=== PATIENT | female | born 1975 | race Caucasian/White ===

== ENCOUNTER 2016-09-30 22:20 | Emergency (ER) | payer MEDICAID ==
--- NOTE | 2016-09-30 22:26 | EDM.PDOC ---
ED HPI GENERAL MEDICAL PROBLEM - General Stated Complaint: SUICIDE Time Seen by Provider: 09/30/16 22:24 Source of Information: Reports: Patient - History of Present Illness INITIAL COMMENTS - FREE TEXT/NARRATIVE: HISTORY AND PHYSICAL: History of present illness: [] Patient had called the suicide hotline tonight with a plan for suicide by ingestion of her medication, she has a history of depression previous suicide attempt at 18yo by cutting wrists, denies inpatient admission for psychiatric or suicidal ideations in the past No fever nausea vomiting chills sweats no chest pain shortness breath headache dizziness palpitation no bowel or urine symptoms She admits to drinking alcohol tonight but denies illicit drug use History of bipolar disorder and depression Pill Count is accurate, Hx of asthma or medications than she should. Indicating noncompliance Review of systems: As per history of present illness and below otherwise all systems reviewed and negative. Past medical history: As per history of present illness and as reviewed below otherwise noncontributory. Surgical history: As per history of present illness and as reviewed below otherwise noncontributory. Social history: No reported history of drug or alcohol abuse. Family history: As per history of present illness and as reviewed below otherwise noncontributory. Physical exam: HEENT: Atraumatic, normocephalic, pupils reactive, negative for conjunctival pallor or scleral icterus, mucous membranes moist, throat clear, neck supple, nontender, trachea midline. Lungs: Clear to auscultation, breath sounds equal bilaterally, chest nontender. Heart: S1S2, regular, negative for clicks, rubs, or JVD. Abdomen: Soft, nondistended, nontender. Negative for masses or hepatosplenomegaly. Negative for costovertebral tenderness. Pelvis: Stable nontender. Genitourinary: Deferred. Rectal: Deferred. Extremities: Atraumatic, negative for cords or calf pain. Neurovascular unremarkable. Neuro: Awake, alert, oriented. Cranial nerves II through XII unremarkable. Cerebellum unremarkable. Motor and sensory unremarkable throughout. Exam nonfocal. Diagnostics: [] Lab as below EKG Chest one view Therapeutics: [] KCl 20 mEq by mouth Impression: [] Suicidal ideation with plan Definitive disposition and diagnosis as appropriate pending reevaluation and review of above. - Related Data Allergies Allergy/AdvReac Type Severity Reaction Status Date / Time Tetracyclines Allergy Airway Verified 09/30/16 22:36 Tightness Home Meds: Home Meds PARoxetine HCl [Paxil] 40 mg PO BEDTIME 09/30/16 [History] lamoTRIgine [Lamotrigine] 100 mg PO BEDTIME 09/30/16 [History] traZODone 50 mg PO BEDTIME 09/30/16 [History] ED ROS GENERAL - Review of Systems Review Of Systems: ROS reveals no pertinent complaints other than HPI. ED EXAM, GENERAL - Physical Exam Exam: See Below Course - Vital Signs Last Recorded V/S: Last Vital Signs Temp 36.8 C 09/30/16 22:20 Pulse 70 09/30/16 23:34 Resp 18 09/30/16 23:34 BP 113/91 H 09/30/16 23:34 Pulse Ox 96 09/30/16 23:34 - Orders/Labs/Meds Orders: Active Orders 24 hr Category Date Time Status EKG Documentation Completion [RC] STAT Care 09/30/16 22:22 Active Chest 1V Frontal [CR] Stat Exams 09/30/16 22:22 Taken Labs: Laboratory Tests 09/30/16 09/30/16 09/30/16 Range/Units 22:20 22:20 22:20 WBC (4.0-11.0) K/uL RBC (4.30-5.90) M/uL Hgb (12.0-16.0) g/dL Hct (36.0-46.0) % MCV (80.0-98.0) fL MCH (27.0-32.0) pg MCHC (31.0-37.0) g/dL RDW Std Deviation (28.0-62.0) fl RDW Coeff of Joanne (11.0-15.0) % Plt Count (150-400) K/uL MPV (7.40-12.00) fL Neut % (Auto) (48.0-80.0) % Lymph % (Auto) (16.0-40.0) % [place] % (Auto) (0.0-15.0) % Eos % (Auto) (0.0-7.0) % Baso % (Auto) (0.0-1.5) % Neut # (1.4-5.7) K/uL Lymph # (0.6-2.4) K/uL [place] # (0.0-0.8) K/uL Eos # (0.0-0.7) K/uL Baso # (0.0-0.1) K/uL Nucleated RBC % /100WBC Nucleated RBCs # K/uL Sodium (136-146) mmol/L Potassium (3.5-5.1) mmol/L Chloride (98-110) mmol/L Carbon Dioxide (21-31) mmol/L BUN (6.0-23.0) mg/dL Creatinine (0.6-1.5) mg/dL Est Cr Clr Drug Dosing mL/min Estimated GFR (MDRD) ml/min Glucose (60-110) mg/dL Calcium (8.8-10.8) mg/dL Total Bilirubin (0.1-1.5) mg/dL AST (5-40) IU/L ALT (8-54) IU/L Alkaline Phosphatase (40-150) Troponin I (0.0-0.29) NG/ML Total Protein (6.0-8.0) g/dL Albumin (3.5-5.0) g/dL Globulin (2.0-3.5) g/dL Albumin/Globulin Ratio (1.3-2.8) Amylase (10-90) U/L Lipase (7-80) U/L TSH 3rd Generation (0.47-5.0) uIU/mL Urine Color YELLOW Urine Appearance CLEAR Urine pH 5.5 (5.0-8.0) Ur Specific [place] <= 1.005 (1.001-1.035) Urine Protein NEGATIVE (NEGATIVE) mg/dL Urine Glucose (UA) NEGATIVE (NEGATIVE) mg/dL Urine Ketones NEGATIVE (NEGATIVE) mg/dL Urine Occult Blood TRACE-INTACT (NEGATIVE) Urine Nitrite NEGATIVE (NEGATIVE) Urine Bilirubin NEGATIVE (NEGATIVE) Urine Urobilinogen 0.2 (<2.0) EU/dL Ur Leukocyte Esterase NEGATIVE (NEGATIVE) Urine RBC 0-1 (0-2/HPF) Urine WBC 0-2 (0-5/HPF) Ur Epithelial Cells FEW (NONE-FEW) Urine Bacteria RARE (NEGATIVE) Urine HCG, Qual NEGATIVE (NEGATIVE) Salicylates (0-20) mg/dL Urine Opiates Screen NEGATIVE (NEGATIVE) Ur Oxycodone Screen NEGATIVE (NEGATIVE) Urine Methadone Screen NEGATIVE (NEGATIVE) Acetaminophen ug/mL Ur Barbiturates Screen NEGATIVE (NEGATIVE) Ur Phencyclidine Scrn NEGATIVE (NEGATIVE) Ur Amphetamine Screen NEGATIVE (NEGATIVE) U Methamphetamines Scrn NEGATIVE (NEGATIVE) U Benzodiazepines Scrn NEGATIVE (NEGATIVE) U Cocaine Metab Screen NEGATIVE (NEGATIVE) U Marijuana (THC) Screen NEGATIVE (NEGATIVE) Ethyl Alcohol mg/dL 09/30/16 09/30/16 09/30/16 Range/Units 22:30 22:30 22:30 WBC 8.84 (4.0-11.0) K/uL RBC 4.61 (4.30-5.90) M/uL Hgb 14.7 (12.0-16.0) g/dL Hct 43.5 (36.0-46.0) % MCV 94.4 (80.0-98.0) fL MCH 31.9 (27.0-32.0) pg MCHC 33.8 (31.0-37.0) g/dL RDW Std Deviation 45.3 (28.0-62.0) fl RDW Coeff of Joanne 13 (11.0-15.0) % Plt Count 211 (150-400) K/uL MPV 10.40 (7.40-12.00) fL Neut % (Auto) 53.4 (48.0-80.0) % Lymph % (Auto) 40.3 H (16.0-40.0) % [place] % (Auto) 4.2 (0.0-15.0) % Eos % (Auto) 1.6 (0.0-7.0) % Baso % (Auto) 0.5 (0.0-1.5) % Neut # 4.7 (1.4-5.7) K/uL Lymph # 3.6 H (0.6-2.4) K/uL [place] # 0.4 (0.0-0.8) K/uL Eos # 0.1 (0.0-0.7) K/uL Baso # 0.0 (0.0-0.1) K/uL Nucleated RBC % 0.0 /100WBC Nucleated RBCs # 0 K/uL Sodium 142 (136-146) mmol/L Potassium 3.2 L (3.5-5.1) mmol/L Chloride 109 (98-110) mmol/L Carbon Dioxide 23 (21-31) mmol/L BUN 8 (6.0-23.0) mg/dL Creatinine 0.8 (0.6-1.5) mg/dL Est Cr Clr Drug Dosing 69.63 mL/min Estimated GFR (MDRD) > 60.0 ml/min Glucose 94 (60-110) mg/dL Calcium 8.9 (8.8-10.8) mg/dL Total Bilirubin 0.3 (0.1-1.5) mg/dL AST 15 (5-40) IU/L ALT 8 (8-54) IU/L Alkaline Phosphatase 74 (40-150) Troponin I < 0.10 (0.0-0.29) NG/ML Total Protein 7.7 (6.0-8.0) g/dL Albumin 4.3 (3.5-5.0) g/dL Globulin 3.4 (2.0-3.5) g/dL Albumin/Globulin Ratio 1.3 (1.3-2.8) Amylase 55 (10-90) U/L Lipase 26 (7-80) U/L TSH 3rd Generation 3.07 (0.47-5.0) uIU/mL Urine Color Urine Appearance Urine pH (5.0-8.0) Ur Specific [place] (1.001-1.035) Urine Protein (NEGATIVE) mg/dL Urine Glucose (UA) (NEGATIVE) mg/dL Urine Ketones (NEGATIVE) mg/dL Urine Occult Blood (NEGATIVE) Urine Nitrite (NEGATIVE) Urine Bilirubin (NEGATIVE) Urine Urobilinogen (<2.0) EU/dL Ur Leukocyte Esterase (NEGATIVE) Urine RBC (0-2/HPF) Urine WBC (0-5/HPF) Ur Epithelial Cells (NONE-FEW) Urine Bacteria (NEGATIVE) Urine HCG, Qual (NEGATIVE) Salicylates < 5.0 (0-20) mg/dL Urine Opiates Screen (NEGATIVE) Ur Oxycodone Screen (NEGATIVE) Urine Methadone Screen (NEGATIVE) Acetaminophen < 3.0 ug/mL Ur Barbiturates Screen (NEGATIVE) Ur Phencyclidine Scrn (NEGATIVE) Ur Amphetamine Screen (NEGATIVE) U Methamphetamines Scrn (NEGATIVE) U Benzodiazepines Scrn (NEGATIVE) U Cocaine Metab Screen (NEGATIVE) U Marijuana (THC) Screen (NEGATIVE) Ethyl Alcohol 65.6 mg/dL Meds: Medications Discontinued Medications Generic Name Dose Route Start Last Admin Trade Name Julissa PRN Reason Stop Dose Admin Sodium Chloride 1,000 mls @ 999 mls/hr 09/30/16 22:28 09/30/16 22:42 Normal Saline IV 09/30/16 23:28 999 mls/hr STAT ONE Administration Potassium Chloride 20 meq 09/30/16 23:37 Klor-Con M20 PO 09/30/16 23:38 ONETIME ONE Departure - Departure Time of Disposition: 00:04 Disposition: DC/Tfer to Other 70 Condition: good Clinical Impression: Suicidal ideation - My Orders Last 24 Hours: My Active Orders 09/30/16 22:22 EKG Documentation Completion [RC] STAT Chest 1V Frontal [CR] Stat - Assessment/Plan Last 24 Hours: My Active Orders 09/30/16 22:22 EKG Documentation Completion [RC] STAT Chest 1V Frontal [CR] Stat
[2016-09-30] MEDS ORDERED: Sodium Chloride 0.9% 1,000 ML IV ONE (22:28)
[2016-09-30 23:02] LABS: CHLORIDE,CL 109 mmol/L (98-110); SODIUM,NA 142 mmol/L (136-146)
[2016-09-30 23:25] LABS: ACETAMINOPHEN < 3.0 ug/mL
[2016-09-30] MEDS ORDERED: Potassium Chloride 20 MEQ Tab.ER PO ONE (23:37)
[2016-10-01 01:59] VITALS: BP 112/80
--- NOTE | 2016-10-02 16:37 | CR ---
EXAM DATE: 09/30/16 PATIENT'S AGE: 41 Patient: CHATA CHILDRESS Facility: [place], [place] Site . Site : 1975 Study: XRay Chest [id number] 10:52:38 PM Ordering Physician: Tricia Bolton Final Report: INDICATION: Pain. Suicidal. Technique: Single-view chest. Findings: Heart size upper limits of normal. Lungs are hyperinflated or there has been a deep inspiration. No focal infiltrate or consolidation in either lung. Chest otherwise negative without acute disease. Dictated by Alexandro Adkins MD @ Sep 30 2016 11:07PM (Electronic Signature) Report Signed by Proxy and Original Signed Document filed in the Medical Record. MTDD
== END 2016-10-01 00:55 | disposition other institution (70) ==
LOC: MW.ED 22:20
DX: R45.851 Suicidal ideations (principal); Z79.899 Other long term (current) drug therapy; Z88.8 Allergy status to other drugs, medicaments and biological substances
CPT/HCPCS: 36415; 71010; 80053; 81001; 81025; 82150; 83690; 84443; 84484; 85025; 93005; 96360; 99285; A9270; G0478; G0479; G0480; J7040; 80305

== ENCOUNTER → 2016-10-03 | Outpatient (CLI) | payer MEDICAID ==
--- NOTE | 2016-10-04 14:57 | CR ---
EXAM DATE: 10/03/16 PATIENT'S AGE: 41 Patient: CHATA CHILDRESS Facility: [place], [place] Site . Site : 1975 Study: XRay Chest [id number]/28/2017 5:03:22 PM Ordering Physician: Debra Baez Final Report: INDICATION: generalized hyperhidrosis TECHNIQUE: Chest 2 views. COMPARISON: 09/30/16 FINDINGS: Cardiovascular and mediastinum: Heart size and vasculature are normal in caliber and appearance. Mediastinum is within normal limits. Lungs and pleural spaces: Lungs are clear. No sign of infiltrate or mass. No sign of pleural effusion. No pneumothorax. Bones and soft tissues: No significant findings. IMPRESSION: Unremarkable chest. Dictated by: Carlos Ann MD @ 10/03/2016 21:40:02 (Electronic Signature) Report Signed by Proxy and Original Signed Document filed in the Medical Record. [facility]
== END ==
LOC: MW.CHOBGYN 15:39
PROVIDERS: ATTEND Nurse Practitioner Women's Health
DX: R61 Generalized hyperhidrosis (principal)
CPT/HCPCS: 36415; 71020; 71020-26; 86803; 87389

== ENCOUNTER 2016-11-01 14:42 | Emergency (ER) | payer MEDICAID ==
[2016-11-01] MEDS ORDERED: Ketorolac 30 MG/ML SDV IVPUSH ONE (14:55)
[2016-11-01] MEDS ORDERED: Sodium Chloride 0.9% 1,000 ML IV ONE (14:55)
[2016-11-01] MEDS ORDERED: Ondansetron 4 MG/2 ML SDV IVPUSH ONE (14:55)
--- NOTE | 2016-11-01 15:03 | EDM.PDOC ---
ED HPI GI/ABDOMINAL - General Chief Complaint: Abdominal Pain Stated Complaint: ABDOMINAL PAIN Time Seen by Provider: 11/01/16 14:50 Source of Information: Reports: Patient History Limitations: Reports: No limitations - History of Present Illness INITIAL COMMENTS - FREE TEXT/NARRATIVE: History of present illness: [41-year-old female comes in complaining of acute abdominal pain indicates that it has gotten progressively worse over the last 24 hours. Patient denies any nausea or vomiting at this time but indicates there was some transient mild nausea yesterday. Patient also indicates that she has had slight recent change in her medication regimen which includes an increase in her Lamictal.] Review of systems: As per history of present illness and below otherwise all systems reviewed and negative. Past medical history: As per history of present illness and as reviewed below otherwise noncontributory. Surgical history: As per history of present illness and as reviewed below otherwise noncontributory. Social history: No reported history of drug or alcohol abuse. Family history: As per history of present illness and as reviewed below otherwise noncontributory. Physical exam: HEENT: Atraumatic, normocephalic, pupils reactive, negative for conjunctival pallor or scleral icterus, mucous membranes moist, throat clear, neck supple, nontender, trachea midline. Lungs: Clear to auscultation, breath sounds equal bilaterally, chest nontender. Heart: S1S2, regular, negative for clicks, rubs, or JVD. Abdomen: Soft, nondistended, nontender. Negative for masses or hepatosplenomegaly. Negative for costovertebral tenderness. Pelvis: Stable nontender. Genitourinary: Deferred. Rectal: Deferred. Extremities: Atraumatic, negative for cords or calf pain. Neurovascular unremarkable. Neuro: Awake, alert, oriented. Cranial nerves II through XII unremarkable. Cerebellum unremarkable. Motor and sensory unremarkable throughout. Exam nonfocal. Of note on exam manual palpation of abdomen was negative and then patient indicated her pain was actually more in the suprapubic region indicating that she was having more pelvic pain and pressure than actual abdominal pain. Upon questioning the patient in regards to history of any vaginal infections STD and/ or BP patient indicated that she had had chlamydia once didn't understand anything in regards to fracture of vaginosis, indicated she did have frequent heavy and going discharge, and indicated recently sexual activity had become painful. Pelvic exam performed with swabs obtained for GC as well as trich. Bimanual exam performed with exquisite tenderness noted with acute cervical motion tenderness noted as well as some pain in the adnexa. Labs ordered for HIV as well as syphilis secondary to high index of suspicion for PID. Will empirically treat patient with 2 g of azithromycin secondary to findings of acute cervical motion tenderness. Diagnostics: [CBC, CMP, UA, lipase, amylase, HIV, RPR] Therapeutics: [IV fluid] Impression: [Pelvic pain] Plan: [2 g azithromycin here] Definitive disposition and diagnosis as appropriate pending reevaluation and review of above. 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[employer] History: Reports: Psychiatric History: Reports: Depression, Psych Hospitalization(s), Suicide attempt, Suicidal ideation, Other (see below) Other Psychiatric History: bipolar - Infectious Disease History Infectious Disease History: Reports: Chicken pox - Past Surgical History Female Surgical History: Reports: Tubal ligation Musculoskeletal Surgical History: Reports: Other (see below) Other Musculoskeletal Surgeries/Procedures:: right ankle Social & Family History - Family History Family Medical History: Noncontributory - Tobacco Use Smoking Status *Q: Current Every Day Smoker Years of Tobacco use: 20 Packs/Tins Daily: 1 - Caffeine Use Caffeine Use: Reports: Coffee, Soda - Recreational Drug Use Recreational Drug Use: Yes Drug Use in Last 12 Months: Yes Recreational Drug Type: Reports: Marijuana/Hashish Recreational Drug Use Frequency: Not Used In Over 3 Months ED ROS GENERAL - Review of Systems Review Of Systems: See Below (See history of present illness) ED EXAM, GI/ABD - Physical Exam Exam: See Below (History of present illness) Course - Vital Signs Last Recorded V/S: Last Vital Signs Temp 37.4 C 11/01/16 16:07 Pulse 60 11/01/16 16:07 Resp 16 11/01/16 14:46 BP 117/55 L 11/01/16 16:07 Pulse Ox 96 11/01/16 14:46 - Orders/Labs/Meds Orders: Active Orders 24 hr Category Date Time Status CHLAMYDIA TRACHOMATIS/GC AMPLF Stat Lab 11/01/16 16:32 Received HIV12 AG/AB 4TH GEN [CHEM] Stat Lab 11/01/16 15:15 Received RPR [REF] Stat Lab 11/01/16 15:15 Received TRICH/BUBBA/CAND BY DNA PROBE [MOLEC] Stat Lab 11/01/16 16:32 Received Labs: Laboratory Tests 11/01/16 11/01/16 11/01/16 Range/Units 15:15 15:15 15:25 WBC 6.83 (4.0-11.0) K/uL RBC 4.42 (4.30-5.90) M/uL Hgb 14.1 (12.0-16.0) g/dL Hct 41.0 (36.0-46.0) % MCV 92.8 (80.0-98.0) fL MCH 31.9 (27.0-32.0) pg MCHC 34.4 (31.0-37.0) g/dL RDW Std Deviation 45.1 (28.0-62.0) fl RDW Coeff of Joanne 13 (11.0-15.0) % Plt Count 203 (150-400) K/uL MPV 10.10 (7.40-12.00) fL Neut % (Auto) 53.7 (48.0-80.0) % Lymph % (Auto) 37.8 (16.0-40.0) % [place] % (Auto) 6.6 (0.0-15.0) % Eos % (Auto) 1.5 (0.0-7.0) % Baso % (Auto) 0.4 (0.0-1.5) % Neut # (Auto) 3.7 (1.4-5.7) K/uL Lymph # (Auto) 2.6 H (0.6-2.4) K/uL [place] # (Auto) 0.5 (0.0-0.8) K/uL Eos # (Auto) 0.1 (0.0-0.7) K/uL Baso # (Auto) 0.0 (0.0-0.1) K/uL Nucleated RBC % 0.0 /100WBC Nucleated RBCs # 0 K/uL Sodium 138 (136-146) mmol/L Potassium 4.0 (3.5-5.1) mmol/L Chloride 106 (98-110) mmol/L Carbon Dioxide 24 (21-31) mmol/L BUN 8 (6.0-23.0) mg/dL Creatinine 0.7 (0.6-1.5) mg/dL Est Cr Clr Drug Dosing 80.23 mL/min Estimated GFR (MDRD) > 60.0 ml/min Glucose 88 (60-110) mg/dL Calcium 9.1 (8.8-10.8) mg/dL Total Bilirubin 0.6 (0.1-1.5) mg/dL AST 15 (5-40) IU/L ALT 7 L (8-54) IU/L Alkaline Phosphatase 65 (40-150) Total Protein 7.1 (6.0-8.0) g/dL Albumin 4.0 (3.5-5.0) g/dL Globulin 3.1 (2.0-3.5) g/dL Albumin/Globulin Ratio 1.3 (1.3-2.8) Amylase 42 (10-90) U/L Lipase 18 (7-80) U/L Urine Color Urine Appearance Urine pH (5.0-8.0) Ur Specific Straughn (1.001-1.035) Urine Protein (NEGATIVE) mg/dL Urine Glucose (UA) (NEGATIVE) mg/dL Urine Ketones (NEGATIVE) mg/dL Urine Occult Blood (NEGATIVE) Urine Nitrite (NEGATIVE) Urine Bilirubin (NEGATIVE) Urine Urobilinogen (<2.0) EU/dL Ur Leukocyte Esterase (NEGATIVE) Urine RBC (0-2/HPF) Urine WBC (0-5/HPF) Ur Epithelial Cells (NONE-FEW) Urine Bacteria (NEGATIVE) Urine HCG, Qual NEGATIVE (NEGATIVE) 11/01/16 Range/Units 15:25 WBC (4.0-11.0) K/uL RBC (4.30-5.90) M/uL Hgb (12.0-16.0) g/dL Hct (36.0-46.0) % MCV (80.0-98.0) fL MCH (27.0-32.0) pg MCHC (31.0-37.0) g/dL RDW Std Deviation (28.0-62.0) fl RDW Coeff of Joanne (11.0-15.0) % Plt Count (150-400) K/uL MPV (7.40-12.00) fL Neut % (Auto) (48.0-80.0) % Lymph % (Auto) (16.0-40.0) % [place] % (Auto) (0.0-15.0) % Eos % (Auto) (0.0-7.0) % Baso % (Auto) (0.0-1.5) % Neut # (Auto) (1.4-5.7) K/uL Lymph # (Auto) (0.6-2.4) K/uL [place] # (Auto) (0.0-0.8) K/uL Eos # (Auto) (0.0-0.7) K/uL Baso # (Auto) (0.0-0.1) K/uL Nucleated RBC % /100WBC Nucleated RBCs # K/uL Sodium (136-146) mmol/L Potassium (3.5-5.1) mmol/L Chloride (98-110) mmol/L Carbon Dioxide (21-31) mmol/L BUN (6.0-23.0) mg/dL Creatinine (0.6-1.5) mg/dL Est Cr Clr Drug Dosing mL/min Estimated GFR (MDRD) ml/min Glucose (60-110) mg/dL Calcium (8.8-10.8) mg/dL Total Bilirubin (0.1-1.5) mg/dL AST (5-40) IU/L ALT (8-54) IU/L Alkaline Phosphatase (40-150) Total Protein (6.0-8.0) g/dL Albumin (3.5-5.0) g/dL Globulin (2.0-3.5) g/dL Albumin/Globulin Ratio (1.3-2.8) Amylase (10-90) U/L Lipase (7-80) U/L Urine Color YELLOW Urine Appearance CLEAR Urine pH 6.5 (5.0-8.0) Ur Specific [place]hn <= 1.005 (1.001-1.035) Urine Protein NEGATIVE (NEGATIVE) mg/dL Urine Glucose (UA) NEGATIVE (NEGATIVE) mg/dL Urine Ketones NEGATIVE (NEGATIVE) mg/dL Urine Occult Blood NEGATIVE (NEGATIVE) Urine Nitrite NEGATIVE (NEGATIVE) Urine Bilirubin NEGATIVE (NEGATIVE) Urine Urobilinogen 0.2 (<2.0) EU/dL Ur Leukocyte Esterase NEGATIVE (NEGATIVE) Urine RBC 0-1 (0-2/HPF) Urine WBC 0-1 (0-5/HPF) Ur Epithelial Cells FEW (NONE-FEW) Urine Bacteria RARE (NEGATIVE) Urine HCG, Qual (NEGATIVE) Meds: Medications Discontinued Medications Generic Name Dose Route Start Last Admin Trade Name Freq PRN Reason Stop Dose Admin Azithromycin 2,000 mg 11/01/16 18:09 Zithromax 200 Mg/5 Ml Susp PO 11/01/16 18:10 ONETIME ONE Sodium Chloride 1,000 mls @ 999 mls/hr 11/01/16 14:55 11/01/16 15:31 Normal Saline IV 11/01/16 15:55 999 mls/hr .Bolus ONE Administration Ketorolac Tromethamine 30 mg 11/01/16 14:55 11/01/16 15:33 Toradol IVPUSH 11/01/16 14:56 30 mg ONETIME ONE Administration Ondansetron HCl 4 mg 11/01/16 14:55 11/01/16 15:31 Zofran IVPUSH 11/01/16 14:56 4 mg ONETIME ONE Administration Departure - Departure Time of Disposition: 18:18 Disposition: Home, Self-Care 01 Condition: good Clinical Impression: Pelvic pain, Abdominal pain Instructions: Abdominal Pain, Adult, [id number] Referrals: Carlos Ron MD [Primary Care Provider] - Forms: ED Department Discharge Additional Instructions: The following information is given to patients seen in the emergency department who are being discharged to home. This information is to outline your options for follow-up care. We provide all patients seen in our emergency department with a follow-up referral. The need for follow-up, as well as the timing and circumstances, are variable depending upon the specifics of your emergency department visit. If you don't have a primary care physician on staff, we will provide you with a referral. We always advise you to contact your personal physician following an emergency department visit to inform them of the circumstance of the visit and for follow-up with them and/or the need for any referrals to a consulting specialist. The emergency department will also refer you to a specialist when appropriate. This referral assures that you have the opportunity for follow-up care with a specialist. All of these measure are taken in an effort to provide you with optimal care, which includes your follow-up. Under all circumstances we always encourage you to contact your private physician who remains a resource for coordinating your care. When calling for follow-up care, please make the office aware that this follow-up is from your recent emergency room visit. If for any reason you are refused follow-up, please contact the [facility] Emergency Department at and asked to speak to the emergency department charge nurse. Followup with primary care provider as directed You had some labs drawn here that you have be notified of the results when they are complete. Any results that are benign do not usually generates a phone call, if there is concern or need to be treated for anything found upon the lab work you'll be called. Turned ED with any needs or concerns as discussed - My Orders Last 24 Hours: My Active Orders 11/01/16 15:15 HIV12 AG/AB 4TH GEN [CHEM] Stat RPR [REF] Stat 11/01/16 16:32 CHLAMYDIA TRACHOMATIS/GC AMPLF Stat TRICH/BUBBA/CAND BY DNA PROBE [MOLEC] Stat - Assessment/Plan Last 24 Hours: My Active Orders 11/01/16 15:15 HIV12 AG/AB 4TH GEN [CHEM] Stat RPR [REF] Stat 11/01/16 16:32 CHLAMYDIA TRACHOMATIS/GC AMPLF Stat TRICH/BUBBA/CAND BY DNA PROBE [MOLEC] Stat
[2016-11-01 16:00] LABS: CHLORIDE,CL 106 mmol/L (98-110); SODIUM,NA 138 mmol/L (136-146)
[2016-11-01] MEDS ORDERED: Azithromycin 200 MG/5 ML Susp 15 ML Bottle PO ONE (18:09)
[2016-11-01] MEDS ORDERED: Azithromycin 250 MG Tab PO ONE (18:17)
[2016-11-01 18:24] VITALS: BP 122/57
== END 2016-11-01 18:36 | disposition home or self-care (01) ==
LOC: MW.ED 14:42
DX: R10.2 Pelvic and perineal pain (principal); F31.9 Bipolar disorder, unspecified; F17.210 Nicotine dependence, cigarettes, uncomplicated; Z98.890 Other specified postprocedural states; Z88.1 Allergy status to other antibiotic agents
CPT/HCPCS: 36415; 80053; 81001; 81025; 82150; 83690; 85025; 86592; 87389; 87480; 87491; 87510; 87591; 87660; 96361; 96374; 96375; 99284; A9270; J1885; J2405; J7040